=== PATIENT | female | born 1990 | race Caucasian/White ===

== ENCOUNTER → 2022-01-20 | Outpatient (CLI) | payer BC ==
--- NOTE | 2022-01-20 17:10 | Diagnostic Imaging Report ---
INDICATION: survey. TECHNIQUE: Multiple real-time grayscale images were obtained over the gravid uterus. COMPARISON: None. FINDINGS: There is a single live intrauterine fetus which is active and variable in position. Placenta is anterior and does extend into the lower uterine segment but does not appear to extend across the cervix. The amniotic fluid index is normal at 15 cm. There is noted a small venous colin in the placenta. heart rate of 149 BPM. Maternal cervical length is 6 cm. biometric measurements are BPD 4.68 cm, 20 weeks 2 days; head circumference 17.7 cm, 20 weeks 2 days; abdominal circumference 15.1 cm, 20 weeks 3 days; femur length 3.3 cm, 20 weeks 3 days with estimated weight of 348 g. anatomical survey was normal with structures visualized including kidneys, bladder, stomach, brain, ventricles, four-chamber heart, three-vessel cord, spine, and cord insertion. The maternal adnexa appear normal. Biometrical measurements are as follows: Biparietal 4.68 cm, age 20 weeks 2 days. Head circumference 17.73 cm, age 20 weeks 2 days. Abdominal circumference 15.15 cm, age 20 weeks 3 days. Femur length 3.31 cm, age 20 weeks 3 days. Sonographic estimate age: 20 weeks 3 days. Sonographic estimated date of delivery: 06/06/2022. Estimated Weight: 348 gm (+/- 51 gm). LMP percentile: 48%. heart rate: 149 beats per minute. number: 1 of 1. IMPRESSION: Normal OB survey. Current biometric measurements average for 20 weeks 3 days with sonographic EDC of 06/06/2022. Dictated by: Dictated on workstation # [id number]
== END ==
LOC: RAD 11:19
PROVIDERS: ATTEND Nurse Practitioner Women's Health
DX: Z34.02 Encounter for supervision of normal first pregnancy, second trimester (principal); Z3A.20 20 weeks gestation of pregnancy
CPT/HCPCS: 76805

== ENCOUNTER 2022-06-02 19:05 | Inpatient (IN) | payer BC ==
[~2022-06-02] VITALS: Ht 162.6 cm; Wt 78.5 kg
[2022-06-02] MEDS ORDERED: NS IV 1000 ML 1,000 ML ONE (19:44)
[2022-06-02 20:00] VITALS: BP 131/81
[2022-06-02] MEDS ORDERED: TERBUTALINE INJ 1 MG/ML (BRETHINE) AMP SC PRN (20:15)
[2022-06-02] MEDS ORDERED: NS IV 1000 ML 1,000 ML IV SCH (20:15)
[2022-06-02 20:30] VITALS: BP 115/78
[2022-06-02] MEDS ORDERED: D5 LR IV SOLUTION 1,000 ML IV ONE (20:51)
[2022-06-02] MEDS: D5 LR IV SOLUTION 1,000 ML IV SCH (20:54)
[2022-06-02 20:58] LABS: BILIRUBIN,URINE NEGATIVE (NEGATIVE); CLARITY,URINE CLEAR; COLOR,URINE YELLOW; GLUCOSE, URINE (UA) NEGATIVE (NEGATIVE); KETONES,URINE NEGATIVE (NEGATIVE); LEUKOCYTE ESTERASE ,URINE NEGATIVE (NEGATIVE); NITRITE,URINE NEGATIVE (NEGATIVE); PROTEIN,URINE TRACE (NEGATIVE)
[2022-06-02 21:22] LABS: BACTERIA,URINE FEW /HPF; WBC,URINE RARE /HPF
[2022-06-02 21:31] LABS: BASOPHILS % (AUTO) 0 % (0-10); EOSINOPHILS # (AUTO) 0.1 10^3/uL (0.0-0.3); EOSINOPHILS % (AUTO) 1 % (0-10); HEMATOCRIT 30 % (35-52); HEMOGLOBIN 10.2 g/dL (11.5-16.0); LYMPHOCYTES # (AUTO) 1.7 10^3/uL (1.0-4.0); LYMPHOCYTES % (AUTO) 18 % (12-44); MEAN CORPUSCULAR HEMOGLOBIN 32 pg (25-34); MEAN CORPUSCULAR HGB CONC 34 g/dL (32-36); MEAN CORPUSCULAR VOLUME 94 fL (80-99); MONOCYTES # (AUTO) 0.9 10^3/uL (0.0-1.0); MONOCYTES % (AUTO) 10 % (0-12); NEUTROPHILS # (AUTO) 6.4 10^3/uL (1.8-7.8); NEUTROPHILS % (AUTO) 70 % (42-75); PLATELET COUNT 139 10^3/uL (130-400); WHITE BLOOD COUNT 9.1 10^3/uL (4.3-11.0)
[2022-06-02 22:00] VITALS: BP 120/80
[2022-06-02] MEDS: CATHETER FLUSH 10 ML SYR IV SCH (22:00)
[2022-06-02 22:30] VITALS: BP 116/90
[2022-06-02 23:00] VITALS: BP 99/60
[2022-06-02 23:30] VITALS: BP 99/58
[2022-06-03] VITALS (62 sets, daily range): BP systolic 84–143; BP diastolic 48–88
[2022-06-03] MEDS ORDERED: HYDROmorphone 2 MG/ML VIAL (DILAUDID) IV PRN (03:00)
[2022-06-03] MEDS: D5 LR IV SOLUTION 1,000 ML IV SCH ×2 (04:42→12:42)
--- NOTE | 2022-06-03 06:31 | History & Physical-OB/GYN ---
EMILIE ARZATE 06/03/22 0631: OB - Chief Complaint & HPI Date/Time Date of Admission: Date of Admission: Jun 02, 2022 at 19:05 Date seen by a Provider: Jun 03, 2022 Time Seen by a Provider: 06:35 Chief Complaint/History OB-Reason for Admission/Chief: Induction of Labor Hx : 1 Hx Para: 0 Expected Date of Delivery: Jun 07, 2022 Gestational Age in Weeks: 39 Gestational Age in Days: 2 Indication for induction: medical complication (Gestation HTN) History of Labs O+ Antibody Neg VDRL NR HBsAg NR HIV NR GC Neg RI GBS Neg Allergies and Home Medications Allergies Coded Allergies: No Known Drug Allergies (Unverified , 06/02/22) Patient Home Medication List Home Medication List Reviewed: Yes OB - History Hx of Present Care: Yes Ultrasounds: Normal mid trimester US Obstetrical Complications: Gestational Hypertension Medical Complications: None Information Induced Hypertension: Yes Maternal Gestational Diabetes: No Hemorrhage: No Obstetrical History Hx : 1 Hx Para: 0 Hx Ectopic : No Patient Past Medical History NC Social History/Family History Alcohol Use: Denies Use Recreational Drug Use: No Smoking Cessation: Former smoker (Quit 9 months ago) Immunizations Influenza Vaccine Up-to-Date: No; Not Current Rubella: immune RPR/VDRL: Negative GBS Status: Negative HBsAG: Negative OB - Admission Exam Physical Exam Vitals: Vital Signs 06/02/22 06/03/22 22:00 02:35 Temp 36.9 Pulse 73 Resp 18 B/P (MAP) 126/85 (99) O2 Delivery Room Air HEENT: PERRLA Heart: Rhythm Normal Lungs: Clear Abdomen: Gravid Extremities: Normal Reflexes: Normal Heart Rate: 140's Accelerations: Accelerations Present Decelerations: No Decelerations Short Term Variability: Present Rotary Dump Operator Variability: Average (6-25) Contractions on Admission: 6-10 Minutes Apart Labs Laboratory Tests Test 06/02/22 19:05 06/02/22 21:11 Range/Units Urine Color YELLOW Urine Clarity CLEAR Urine pH 6.0 5-9 Urine Specific Paradis 1.025 H 1.016-1.022 Urine Protein TRACE H NEGATIVE Urine Glucose (UA) NEGATIVE NEGATIVE Urine Ketones NEGATIVE NEGATIVE Urine Nitrite NEGATIVE NEGATIVE Urine Bilirubin NEGATIVE NEGATIVE Urine Urobilinogen 0.2 < = 1.0 MG/DL Urine Leukocyte Esterase NEGATIVE NEGATIVE Urine RBC (Auto) NEGATIVE NEGATIVE Urine RBC NONE /HPF Urine WBC RARE /HPF Urine Squamous Epithelial Cells 2-5 /HPF Urine Crystals NONE /LPF Urine Bacteria FEW H /HPF Urine Casts NONE /LPF Urine Mucus SMALL H /LPF Urine Culture Indicated YES White Blood Count 9.1 4.3-11.0 10^3/uL Red Blood Count 3.21 L 3.80-5.11 10^6/uL Hemoglobin 10.2 L 11.5-16.0 g/dL Hematocrit 30 L 35-52 % Mean Corpuscular Volume 94 80-99 fL Mean Corpuscular Hemoglobin 32 25-34 pg Mean Corpuscular Hemoglobin Concent 34 32-36 g/dL Red Cell Distribution Width 13.3 10.0-14.5 % Platelet Count 139 130-400 10^3/uL Mean Platelet Volume 12.0 9.0-12.2 fL Immature Granulocyte % (Auto) 1 % Neutrophils (%) (Auto) 70 42-75 % Lymphocytes (%) (Auto) 18 12-44 % Monocytes (%) (Auto) 10 0-12 % Eosinophils (%) (Auto) 1 0-10 % Basophils (%) (Auto) 0 0-10 % Neutrophils # (Auto) 6.4 1.8-7.8 10^3/uL Lymphocytes # (Auto) 1.7 1.0-4.0 10^3/uL Monocytes # (Auto) 0.9 0.0-1.0 10^3/uL Eosinophils # (Auto) 0.1 0.0-0.3 10^3/uL Basophils # (Auto) 0.0 0.0-0.1 10^3/uL Immature Granulocyte # (Auto) 0.1 0.0-0.1 10^3/uL OB - Assessment/Plan/Diagnosis Assessment Assessment: induction of labor Admission Dx at 39 weeks 2 days gestational age Presents for IOL Hx of Gestational HTN in this GBS Neg Otherwise uncomplicated Admission Status: Inpatient Order (span 2 midnights) Reason for Inpatient Admission: IOL secondary to GHTN Plan Plan: Induction BIJALGARY Marilee KNOX 06/03/22 0721: Allergies and Home Medications Allergies Coded Allergies: No Known Drug Allergies (Unverified , 06/02/22) Supervisory-Addendum Brief Verification & Attestation Participated in pt care: history Personally performed: exam Care discussed with: Medical Student Procedures: n/a Procedure type: I&D Results interpretation: Verified all documentation Verification and Attestation of Medical Student E/M Service A medical student performed and documented this service in my presence. I reviewed and verified all information documented by the medical student and made modifications to such information, when appropriate. I personally performed the physical exam and medical decision making. Gary Appiah, Jun 03, 2022,07:20 EMILIE ARZATE Jun 03, 2022 06:31 GAYR APPIAH DO Jun 03, 2022 07:21
[2022-06-03] MEDS: CATHETER FLUSH 10 ML SYR IV SCH (07:19)
[2022-06-03] MEDS ORDERED: OXYTOCIN PRE-MIX DRIP 500 ML IV SCH (08:00)
[2022-06-03] MEDS ORDERED: fentaNYL 2 mcg/ml BUPIVA 0.125 100 ML ONE (12:26)
[2022-06-03] MEDS ORDERED: BUPIVACAINE 0.25% 10 ML (SENSORCAINE) VIAL ONE (12:47)
[2022-06-03] MEDS ORDERED: fentaNYL INJ 100 MCG/2 ML AMP ONE ×2 (12:47→17:48)
[2022-06-03] MEDS ORDERED: LACTATED RINGERS 1,000 ML IV ONE (13:15)
[2022-06-03] MEDS ORDERED: fentaNYL 2 mcg/ml BUPIVA 0.125 100 ML IV SCH (13:15)
[2022-06-03] MEDS ORDERED: NALOXONE 0.4 MG/ML 1 ML (NARCAN) VIAL IV PRN ×2 (13:15→17:30)
[2022-06-03] MEDS ORDERED: CATHETER FLUSH 10 ML SYR IV PRN (13:15)
[2022-06-03] MEDS: LACTATED RINGERS 1,000 ML IV PRN ×2 (17:20→18:14)
[2022-06-03] MEDS ORDERED: MEASLES,MUMPS,RUBELLA 1 EA INJ SC SCH (17:30)
[2022-06-03] MEDS ORDERED: TETANUS,DIPTH,PERTUSS P/F (BOOSTRIX) 0.5 ML VIAL IM SCH (17:30)
[2022-06-03] MEDS ORDERED: ONDANSETRON 4 MG/2 ML (SDV) Z0FRAN IVP PRN (17:30)
[2022-06-03] MEDS ORDERED: CITRIC ACID/SOB CIT (BICITRA) 30 ML UDC PO ONE (17:30)
[2022-06-03] MEDS ORDERED: ceFAZolin INJECTION 2,000 MG in NS (IVPB) 50 ML IV ONE (17:30)
[2022-06-03] MEDS ORDERED: FAMOTIDINE 20MG/2ML IV (PEPCID) IV ONE (17:30)
[2022-06-03] MEDS ORDERED: METOCLOPRAMIDE INJ 10 MG/2 ML (REGLAN) IV ONE (17:30)
--- NOTE | 2022-06-03 17:37 | Discharge Inst-Women's Service ---
Discharge Inst-Women's Serv Depart Medication/Instructions New, Converted or Re-Newed RX: Transmitted to Pharmacy Final Diagnosis POD 2 PLTCS Problems Reviewed?: Yes Consults/Follow Up Additional Follow Up: Yes Orders/Referrals Dr. Buckley/ Kindra in 7-10 days and in 6 weeks Activity Activity: Activity as Tolerated Driving Instructions: No Driving for 1 Week NO SMOKING: NO SMOKING Nothing Inside Vagina: No Douching, No [place], No Tampons Diet Discharge Diet: No Restrictions Symptoms to Report to : Bleeding Excessive, Pain Increased, Fever Over 101 Degrees F, Vaginal Bleeding Increase, Questions/Concerns For Any Problems or Questions: Contact Your Physician Skin/Wound Care Infection Signs and Symptoms: Increased Redness, Foul Odor of Wound, Increased Drainage, Skin Itchy or Has a Rash, Increased Swelling, Temperature Above 101 F Operative Area Clean and Dry: Keep Incision Clean/Dry Stitches/Ramona/Dermabond: Dermabond, Care of Stitches Bathing Instructions: TRISH Hernandez DO Jun 03, 2022 17:37
[2022-06-03] MEDS ORDERED: ACHD5005 PO (17:38)
[2022-06-03] MEDS ORDERED: IBUP-844 PO (17:38)
[2022-06-03] MEDS ORDERED: DOCU100C37 PO (17:38)
[2022-06-03] MEDS ORDERED: BUPIVACAINE 0.5% 30 ML (SENSORCAINE) VIAL ONE (18:00)
[2022-06-03] MEDS ORDERED: ONDANSETRON 4 MG/2 ML (SDV) Z0FRAN ONE (18:00)
[2022-06-03] MEDS ORDERED: OXYTOCIN PRE-MIX DRIP 1,000 ML IV ONE (18:00)
[2022-06-03] MEDS ORDERED: LIDOCAINE PF 2% 5 ML (XYLOCAINE) VIAL ONE (18:00)
[2022-06-03] MEDS ORDERED: LACTATED RINGERS 1,000 ML IV PRN (19:00)
[2022-06-03] MEDS: OXYTOCIN PRE-MIX DRIP 500 ML IV SCH ×2 (19:03→22:49)
[2022-06-03] MEDS: KETOROLAC 30 MG/ML VIAL IV SCH (21:20)
[2022-06-03] MEDS: DOCUSATE SODIUM 100 MG (COLACE) CAP PO SCH (21:20)
[2022-06-03] MEDS ORDERED: CATHETER FLUSH 10 ML SYR IV SCH (22:00)
[2022-06-03] MEDS: HYDROcodone/APAP 5 MG/325 MG (LORTAB) TAB PO PRN (22:50)
--- NOTE | 2022-06-04 00:02 | OPERATIVE REPORT ---
PREOPERATIVE DIAGNOSES: 1. A 32-year-old G1, P0 at 38 weeks' gestation. 2. Gestational hypertension. 3. intolerance to labor. POSTOPERATIVE DIAGNOSES: 1. A 32-year-old G1, P0 at 38 weeks' gestation. 2. Gestational hypertension. 3. intolerance to labor. PROCEDURE: Primary low transverse section. SURGEON: Gary Appiah DO FORKLIFT MECHANIC: Kindra Max, MIGUEL was necessary for manipulation and retraction throughout the procedure. ANESTHESIA: Epidural, which was bolused. ESTIMATED BLOOD LOSS: 500 mL. URINE OUTPUT: 100 mL clear at the end of procedure. FLUIDS: 1500 mL lactated Ringer's solution. FINDINGS: A live male weighing 7 pounds 14 ounces, Apgars of 8 and 8. Grossly normal appearing uterus, bilateral fallopian tubes and ovaries. SPECIMENS SENT: Placenta. INDICATIONS FOR PROCEDURE: This is a 32-year-old female was a patient who had sought care in my office. Her care was uncomplicated until late in the third trimester, she developed gestational hypertension after which she was surveyed closely, had no proteinuria; however induction was planned for 38 weeks due to the increase in blood pressures in her office appointment. She was given misoprostol overnight as she was not favorable at induction time, her water was broken the following morning. Pitocin augmentation was attempted; however, every time Pitocin augmentation resulted in a regular contraction pattern. heart rate decelerations occurred. We tried multiple attempts and the patient did not make any change. She was remote from delivery at a maximum dilatation of 1.5 cm. Due to intolerance of labor and failure to progress, the decision was made to proceed with primary . Risks of the procedure were discussed with the patient in detail in the preoperative area. After all of her questions were answered, consent was obtained. The patient was taken to the operating room. OPERATIVE REPORT IN DETAIL: Once in the operating room, epidural analgesia was bolused and found to be adequate. She was placed in supine position with leftward tilt, prepped and draped in normal sterile fashion. A timeout was performed. Anesthesia was tested and then make a Pfannenstiel skin incision with a knife and carried to underlying fascia using Bovie cautery. The fascial incision extended laterally using Bovie cautery. Superior aspect of the fascial incision was then grasped with Sandra clamps, tented up and dissected off the underlying rectus muscles. The inferior aspect of the fascial incision was then grasped with Sandra clamps, tented up and dissected off the underlying rectus muscles. The rectus muscles were dissected down the midline using sharp dissection, which exposed the peritoneum, which I entered bluntly, extended using blunt traction. Ranjit ring retractor was placed in the peritoneal incision, which offers excellent lateral sidewall retraction. I identified the lower uterine segment was found to be thinned out and make a low transverse incision to the vesicouterine peritoneum and bluntly dissect this all the way down creating a bladder flap. I then proceeded my myotomy until membranes were visualized, at which point I extended the uterine incision laterally and superiorly using bandage scissors. Amniotomy was performed. In the process of doing this, clear fluid was noted. The was found in vertex presentation. With gentle fundal pressure, the 's head was elevated up the incision where was delivered through the incision. The nares and oropharynx were bulb suctioned. Anterior and posterior shoulders were delivered. The was brought to the operative field where cords were clamped and cut and was handed off to waiting nurses in attendance. Cord blood was collected. Three-vessel cord and intact placenta delivered spontaneously thereafter. IV Pitocin was initiated to facilitate uterine contraction. Uterine fundus confirmed by manual massage. The uterus was exteriorized and cleared of all endometrial clots and debris. I then proceeded with closing the uterine incision using 0 Vicryl suture in a running locked fashion. Second layer of imbricating 0 Monocryl was placed. Excellent hemostasis was noted after doing this. I then placed the uterus back in the pelvis and copiously irrigated the pelvis using normal saline. Once again, there was no active bleeding noted from any of my dissection planes. I placed Interceed antiadhesive over my low transverse incision. I removed the Ranjit ring retractor and then proceeded with closing the peritoneum using 3-0 Vicryl suture in a running fashion. The rectus muscles were reapproximated using 2-0 Vicryl suture in interrupted fashion. The fascia was reapproximated using 0 Vicryl suture in a running fashion. The subcutaneous tissue was reapproximated using 3-0 plain interrupted subcutaneous stitch and skin reapproximated using 4-0 Monocryl running subcuticular. Dermabond was applied to incision, sterile dressing was adhesed with white tape. The patient tolerated the procedure well and was taken to recovery in stable condition. Lap and sponge counts were correct at the end of the procedure. Instrument counts correct as well. Two grams Ancef were given preoperatively for infection prophylaxis. Job ID: [id number] DocumentID: [id number] Dictated Date: 06/03/2022 18:43:44 Irrigation Worker Date: 06/03/2022 23:59:00 Dictated By: GARY APPIAH DO
[2022-06-04 01:50] VITALS: BP 123/75
[2022-06-04] MEDS: KETOROLAC 30 MG/ML VIAL IV SCH ×2 (03:01→10:45)
[2022-06-04 04:40] LABS: MEAN CORPUSCULAR VOLUME 95 fL (80-99); MONOCYTES # (AUTO) 0.8 10^3/uL (0.0-1.0); MONOCYTES % (AUTO) 7 % (0-12)
[2022-06-04 04:42] LABS: BASOPHILS % (AUTO) 0 % (0-10); EOSINOPHILS # (AUTO) 0.1 10^3/uL (0.0-0.3); EOSINOPHILS % (AUTO) 1 % (0-10); HEMATOCRIT 26 % (35-52); HEMOGLOBIN 8.8 g/dL (11.5-16.0); LYMPHOCYTES # (AUTO) 1.6 10^3/uL (1.0-4.0); LYMPHOCYTES % (AUTO) 15 % (12-44); MEAN CORPUSCULAR HEMOGLOBIN 32 pg (25-34); MEAN CORPUSCULAR HGB CONC 34 g/dL (32-36); MEAN PLATELET VOLUME 11.4 fL (9.0-12.2); NEUTROPHILS # (AUTO) 8.2 10^3/uL (1.8-7.8); NEUTROPHILS % (AUTO) 77 % (42-75); PLATELET COUNT 115 10^3/uL (130-400); WHITE BLOOD COUNT 10.7 10^3/uL (4.3-11.0)
[2022-06-04 04:57] LABS: SMEAR SCAN COMMENT YES
[2022-06-04 05:50] VITALS: BP 127/72
--- NOTE | 2022-06-04 06:52 | Postpartum Progress Note ---
Note Note Day # 1 Subjective: Patient is without complaints. Ambulating, voiding. Tolerating a regular diet without nausea or vomiting. Normal lochia. Pain is well controlled with oral pain medications. Brest feeding. Objective: Patient lying in bed at time of evaluation, no signs of distress Physical Exam: General - Alert and oriented, no apparent distress Abdomen - Soft, appropriately tender to palpation, non-distended, fundus firm at umbilicus Extremities - no edema, negative Aron's bilaterally Assessment: PPD 1, s/p NVD Acute blood loss anemia Plan: Routine care. Encourage breast feeding. Encourage ambulation. Ferrous sulfate supplementation. Plan for discharge tomorrow. Vitals - Labs Vital Signs - I&O Vital Signs Date Time Temp Pulse Resp B/P (MAP) Pulse Ox O2 Delivery O2 Flow Rate FiO2 06/04/22 01:50 36.5 61 18 123/75 (91) 97 Room Air 06/03/22 21:40 36.8 70 18 119/70 (86) 98 Room Air 06/03/22 21:03 Room Air 06/03/22 19:50 35.9 18 104/63 (77) 98 Room Air 06/03/22 19:35 35.7 18 118/58 (78) 98 Room Air 06/03/22 19:20 36.0 18 110/71 (84) 98 Room Air 06/03/22 19:05 35.6 18 98/59 (72) 98 Room Air 06/03/22 18:52 35.8 18 92/55 (67) 98 Room Air 06/03/22 17:45 36.9 59 18 115/77 (90) Room Air 06/03/22 17:30 62 18 124/78 (93) Room Air 06/03/22 17:15 63 18 103/58 (73) Room Air 06/03/22 17:00 51 18 106/58 (74) Room Air 06/03/22 16:45 53 18 102/64 (77) Room Air 06/03/22 16:30 52 18 104/65 (78) Room Air 06/03/22 16:15 36.0 56 18 104/68 (80) Room Air 06/03/22 15:40 58 18 99/64 (76) 97 Room Air 06/03/22 15:25 59 18 99/62 (74) 97 Room Air 06/03/22 15:10 62 18 100/59 (73) 97 Room Air 06/03/22 14:55 64 18 117/56 (76) 97 Room Air 06/03/22 14:40 36.8 62 18 120/62 (81) 95 Room Air 06/03/22 14:25 56 18 84/50 (61) 96 Room Air 06/03/22 14:15 52 18 96/58 (71) 97 Room Air 06/03/22 14:10 50 18 98/55 (69) 96 Room Air 06/03/22 14:05 60 18 104/55 (71) 97 Room Air 06/03/22 13:55 52 18 102/60 (74) 99 Room Air 06/03/22 13:50 53 18 84/48 (60) 99 Room Air 06/03/22 13:46 50 18 93/52 (66) 99 Room Air 06/03/22 13:43 41 18 109/61 (77) 99 Room Air 06/03/22 13:40 43 18 105/55 (72) 99 Room Air 06/03/22 13:33 54 18 85/50 (62) 99 Room Air 06/03/22 13:30 56 18 107/56 (73) 97 Room Air 06/03/22 13:28 64 18 114/64 (81) 97 Room Air 06/03/22 13:25 66 18 116/71 (86) 97 Room Air 06/03/22 13:22 74 18 116/71 (86) 97 Room Air 06/03/22 13:19 64 18 110/62 (78) 97 Room Air 06/03/22 13:16 66 18 114/71 (85) 97 Room Air 06/03/22 13:13 78 18 114/69 (84) 98 Room Air 06/03/22 13:10 69 18 118/71 (87) 98 Room Air 06/03/22 13:06 74 18 133/73 (93) 99 Room Air 06/03/22 13:03 64 18 143/78 (99) 99 Room Air 06/03/22 13:00 65 18 140/76 (97) 99 Room Air 06/03/22 12:45 37.1 62 18 135/86 (102) Room Air 06/03/22 12:30 61 18 117/79 (92) Room Air 06/03/22 12:15 64 18 93/58 (70) Room Air 06/03/22 12:00 66 18 110/74 (86) Room Air 06/03/22 11:45 64 18 113/56 (75) Room Air 06/03/22 11:30 63 18 110/66 (81) Room Air 06/03/22 11:15 61 18 104/65 (78) Room Air 06/03/22 11:00 64 18 125/88 (100) Room Air 06/03/22 10:45 60 18 100/59 (73) Room Air 06/03/22 10:30 55 18 105/59 (74) Room Air 06/03/22 10:00 36.7 62 18 104/61 (75) Room Air 06/03/22 09:45 56 18 102/59 (73) Room Air 06/03/22 09:30 63 18 103/58 (73) Room Air 06/03/22 09:15 61 18 107/59 (75) Room Air 06/03/22 08:45 67 18 132/73 (92) Room Air 06/03/22 07:35 61 18 96/57 (70) Room Air I & O 06/04/22 07:00 Intake Total 2050 ml Output Total 600 ml Balance 1450 ml Labs Laboratory Tests 06/04/22 04:30: White Blood Count 10.7, Red Blood Count 2.78L, Hemoglobin 8.8L, Hematocrit 26L, Mean Corpuscular Volume 95, Mean Corpuscular Hemoglobin 32, Mean Corpuscular Hemoglobin Concent 34, Red Cell Distribution Width 13.2, Platelet Count 115L, Mean Platelet Volume 11.4, Immature Granulocyte % (Auto) 1, Neutrophils (%) (Auto) 77H, Lymphocytes (%) (Auto) 15, Monocytes (%) (Auto) 7, Eosinophils (%) (Auto) 1, Basophils (%) (Auto) 0, Neutrophils # (Auto) 8.2H, Lymphocytes # (Auto) 1.6, Monocytes # (Auto) 0.8, Eosinophils # (Auto) 0.1, Basophils # (Auto) 0.0, Immature Granulocyte # (Auto) 0.1, Percent Immature Platelet Fraction 8.2H, Smear Scan YES Microbiology 06/02/22 Urine Culture - Final, Complete NO GROWTH EMILIE ARZATE 8, 2023 06:52
[2022-06-04 10:44] VITALS: BP 119/69
[2022-06-04] MEDS: DOCUSATE SODIUM 100 MG (COLACE) CAP PO SCH ×2 (10:45→21:20)
[2022-06-04] MEDS: FERROUS SULF 325 MG (IRON) TAB PO SCH ×2 (10:45→19:14)
[2022-06-04] MEDS ORDERED: IBUPROFEN 600 MG (MOTRIN) TAB PO ONE ×2 (10:52→15:04)
[2022-06-04] MEDS: IBUPROFEN 600 MG (MOTRIN) TAB PO SCH ×2 (10:54→21:20)
--- NOTE | 2022-06-04 13:45 | Anesthesia-Regional Post-Op ---
Regional Patient Condition Mental Status: Alert, Oriented x3 Circulation: Same as Pre-Op Headache: Absent Sensation: Full Recovery Motor Block: Absent Post Op Complications Complications None Follow Up Care/Instructions Patient Instructions None needed. Anesthesia/Patient Condition Patient is doing well, no complaints, stable vital signs, no apparent adverse anesthesia problems. No complications reported per nursing. [place] [facility] [place]: Yes SUSIE MADRIGAL CRNA Jun 04, 2022 13:45
[2022-06-04] MEDS: HYDROcodone/APAP 5 MG/325 MG (LORTAB) TAB PO PRN ×2 (15:12→21:20)
[2022-06-04 15:48] VITALS: BP 119/69
[2022-06-04 21:21] VITALS: BP 112/71
[2022-06-05] MEDS: IBUPROFEN 600 MG (MOTRIN) TAB PO SCH ×2 (03:35→09:07)
[2022-06-05] MEDS: HYDROcodone/APAP 5 MG/325 MG (LORTAB) TAB PO PRN (03:35)
[2022-06-05 03:37] VITALS: BP 120/70
--- NOTE | 2022-06-05 08:05 | Postpartum Progress Note ---
Note Note Day # 2 Subjective: Patient is without complaints. Ambulating, voiding. Tolerating a regular diet without nausea or vomiting. Normal lochia. Pain is well controlled with oral pain medications. Physical Exam: General - Alert and oriented, no apparent distress Abdomen - Soft, appropriately tender to palpation, non-distended, fundus firm at umbilicus; incision c/d/i Extremities - no edema, negative Aron's bilaterally Assessment: Post- day # 2, status post PLTCS Recovering well, hemodynamically stable Acute blood loss anemia Plan: Routine care. Encourage breast feeding. Encourage ambulation. Ferrous sulfate supplementation. Plan for discharge today Vitals - Labs Vital Signs - I&O Vital Signs Date Time Temp Pulse Resp B/P (MAP) Pulse Ox O2 Delivery O2 Flow Rate FiO2 06/05/22 03:37 36.2 63 18 120/70 (87) 96 Room Air 06/04/22 21:21 36.4 67 18 112/71 (85) 97 Room Air 06/04/22 15:48 36.3 71 18 119/69 (86) 96 Room Air 06/04/22 10:44 36.7 71 18 119/69 (86) 96 Room Air I & O 06/05/22 07:00 Intake Total 600 ml Balance 600 ml Labs Microbiology 06/02/22 Urine Culture - Final, Complete NO GROWTH PARAMJIT MEJIA APRN Jun 05, 2022 08:05
[2022-06-05] MEDS: FERROUS SULF 325 MG (IRON) TAB PO SCH (09:06)
[2022-06-05] MEDS: DOCUSATE SODIUM 100 MG (COLACE) CAP PO SCH (09:07)
[2022-06-05 09:47] VITALS: BP 131/90
== END 2022-06-05 11:40 | disposition home or self-care (01) | DRG 787 ==
LOC: LDRP 19:05
PROVIDERS: ADMIT Obstetrics & Gynecology; ATTEND Obstetrics & Gynecology
PROC: 10D00Z1 Extraction of Products of Conception, Low, Open Approach (ICD-10-PCS; principal; 2022-06-03 18:00)
DX: O13.4 Gestational [pregnancy-induced] hypertension without significant proteinuria, complicating childbirth (principal); D62 Acute posthemorrhagic anemia; Z3A.39 39 weeks gestation of pregnancy; Z37.0 Single live birth; Z87.891 Personal history of nicotine dependence; O90.81 Anemia of the puerperium; O62.0 Primary inadequate contractions
CPT/HCPCS: 36415; 81000; 85025; 86780; 86850; 86900; 86901; 87088; 94664